=== PATIENT | female | born 1995 | race Two or more races ===

== ENCOUNTER 2018-03-11 01:18 | Emergency (ER) | payer OTHER ==
[~2018-03-11] VITALS: Ht 165.1 cm; Wt 60.8 kg
--- NOTE | 2018-03-11 02:45 | NUR ---
Pt came in complaining of headache and chest pain x 1 month, states she was homeless for 2 months and lived in a car. She is A, O/4, moves all extremities unassisted, on RA. Pt uses strong language during assessment.
[2018-03-11 03:32] VITALS: BP 131/69
--- NOTE | 2018-03-11 03:34 | NUR ---
Patient discharged to home in stable condition. Written and verbal after care instructions and prescription given. Patient verbalizes understanding of instruction. Pt ambulatory with a steady gait
== END 2018-03-11 03:34 | disposition home or self-care (01) ==
LOC: ER 01:25
DX: R07.89 Other chest pain (principal); G89.29 Other chronic pain; R51 Headache; F41.9 Anxiety disorder, unspecified; Z87.442 Personal history of urinary calculi; Z98.890 Other specified postprocedural states
CPT/HCPCS: 71045; 93005; 99283; A4606; Z7610